=== PATIENT | male | born 1995 | race Caucasian/White ===

== ENCOUNTER 2023-08-18 00:30 | Emergency (ER) | payer MEDICAID ==
[~2023-08-18] VITALS: Ht 167.6 cm; Wt 84.1 kg
[2023-08-18 00:40] VITALS: TEMP 99.6
[2023-08-18] MEDS: ACETAMINOPHEN 500 MG TABLET PO ONE (01:25)
[2023-08-18] MEDS: IBUPROFEN 600 MG TABLET PO ONE (01:25)
[2023-08-18] MEDS ORDERED: IBUP-1492 PO (01:38)
[2023-08-18] MEDS ORDERED: ACET-3385 PO (01:38)
[2023-08-18 02:49] VITALS: BP 135/60; PULSE 80; RESP 15
== END 2023-08-18 02:54 | disposition home or self-care (01) ==
LOC: EMS 00:30
DX: S60.222A Contusion of left hand, initial encounter (principal); V49.88XA Car occupant (driver) (passenger) injured in other specified transport accidents, initial encounter; Y93.89 Activity, other specified; Y92.89 Other specified places as the place of occurrence of the external cause; Y99.8 Other external cause status
CPT/HCPCS: 99283